=== PATIENT | female | born 1995 | race Two or more races ===

== ENCOUNTER 2020-05-22 11:05 | Observation (INO) | payer MEDICAID | END 2020-05-22 12:25 | disposition home or self-care (01) | DRG 566 | LOC: LDRP 11:05 | PROVIDERS: ADMIT Specialist; ATTEND Specialist | DX: O36.5930 Maternal care for other known or suspected poor fetal growth, third trimester, not applicable or unspecified (principal); Z3A.34 34 weeks gestation of pregnancy | CPT/HCPCS: 76818; G0378; 59025; 81002 ==

== ENCOUNTER 2020-05-25 15:11 | Observation (INO) | payer MEDICAID ==
[2020-05-25] MEDS ORDERED: PREN-96 PO (15:49)
[2020-05-25] MEDS ORDERED: TERBUTALINE SULFATE 1 MG/ML 1ML VIAL SC ONE (19:56)
== END 2020-05-25 16:05 | disposition home or self-care (01) | DRG 566 ==
LOC: LDRP 15:11
PROVIDERS: ADMIT Specialist; ATTEND Specialist
DX: O36.5930 Maternal care for other known or suspected poor fetal growth, third trimester, not applicable or unspecified (principal); Z3A.34 34 weeks gestation of pregnancy
CPT/HCPCS: 59025; 76818; 81002; G0378; J3105

== ENCOUNTER 2020-05-25 18:21 | Observation (INO) | payer MEDICAID ==
[~2020-05-25] VITALS: Ht 160 cm; Wt 62.6 kg
[~2020-05-25 18:21] MED LIST: PREN-96 PO
[2020-05-25] MEDS ORDERED: NIFEdipine 10 MG CAP ONE (19:10)
[2020-05-25] MEDS ORDERED: NIFEdipine 10 MG CAP PO ONE (19:15)
[2020-05-25] MEDS ORDERED: TERBUTALINE SULFATE 1 MG/ML 1ML VIAL SC SCH (20:00)
== END 2020-05-25 20:38 | disposition home or self-care (01) | DRG 566 ==
LOC: LDRP 18:21
PROVIDERS: ADMIT Specialist; ATTEND Specialist
DX: O36.5930 Maternal care for other known or suspected poor fetal growth, third trimester, not applicable or unspecified (principal); O62.9 Abnormality of forces of labor, unspecified; O26.893 Other specified pregnancy related conditions, third trimester; R10.9 Unspecified abdominal pain; Z3A.34 34 weeks gestation of pregnancy
CPT/HCPCS: 59025; 81002; 96372; G0378

== ENCOUNTER 2020-05-29 16:09 | Observation (INO) | payer MEDICAID ==
[2020-05-29] MEDS ORDERED: NIF10C GT (18:18)
== END 2020-05-29 18:56 | disposition home or self-care (01) ==
LOC: LDRP 16:09
PROVIDERS: ADMIT Specialist; ATTEND Specialist
DX: O36.5930 Maternal care for other known or suspected poor fetal growth, third trimester, not applicable or unspecified (principal); Z3A.35 35 weeks gestation of pregnancy
CPT/HCPCS: 59025; 76818; G0378; 81002

== ENCOUNTER 2020-06-01 16:08 | Observation (INO) | payer MEDICAID ==
[~2020-06-01 16:08] MED LIST changes: +NIF10C GT
== END 2020-06-01 17:15 | disposition home or self-care (01) | DRG 566 ==
LOC: LDRP 16:08
PROVIDERS: ADMIT Specialist; ATTEND Specialist
DX: O36.5930 Maternal care for other known or suspected poor fetal growth, third trimester, not applicable or unspecified (principal); O62.9 Abnormality of forces of labor, unspecified; Z3A.35 35 weeks gestation of pregnancy
CPT/HCPCS: 59025; 76818; 81002; G0378

== ENCOUNTER 2020-06-05 14:00 | Observation (INO) | payer MEDICAID | END 2020-06-05 15:03 | disposition home or self-care (01) | DRG 566 | LOC: LDRP 14:00 | PROVIDERS: ADMIT Specialist; ATTEND Specialist | DX: O36.5930 Maternal care for other known or suspected poor fetal growth, third trimester, not applicable or unspecified (principal); Z3A.36 36 weeks gestation of pregnancy | CPT/HCPCS: 59025; 76818; 81002; G0378 ==

== ENCOUNTER 2020-06-08 15:19 | Observation (INO) | payer MEDICAID | END 2020-06-08 16:33 | disposition home or self-care (01) | DRG 566 | LOC: LDRP 15:19 | PROVIDERS: ADMIT Specialist; ATTEND Specialist | DX: O36.5930 Maternal care for other known or suspected poor fetal growth, third trimester, not applicable or unspecified (principal); Z3A.36 36 weeks gestation of pregnancy | CPT/HCPCS: 59025; 76818; 81002; G0378 ==

== ENCOUNTER 2020-06-12 15:00 | Observation (INO) | payer MEDICAID | END 2020-06-12 16:10 | disposition home or self-care (01) | DRG 566 | LOC: LDRP 15:00 | PROVIDERS: ADMIT Specialist; ATTEND Specialist | DX: O36.5930 Maternal care for other known or suspected poor fetal growth, third trimester, not applicable or unspecified (principal); O62.9 Abnormality of forces of labor, unspecified; Z3A.37 37 weeks gestation of pregnancy | CPT/HCPCS: 59025; 76818; 81002; G0378 ==

== ENCOUNTER 2020-06-16 07:00 | Inpatient (IN) | payer MEDICAID ==
[~2020-06-16] VITALS: Ht 160 cm; Wt 63.5 kg
[2020-06-16] MEDS ORDERED: WITCH HAZEL-GLYCERIN PAD TOP PRN (07:30)
[2020-06-16] MEDS: LACTATED RINGER'S 1,000 ML IV SCH ×2 (07:30→14:08)
[2020-06-16] MEDS ORDERED: NALBUPHINE HCL 10 MG/1ml INJECTION IV PRN (07:30)
[2020-06-16] MEDS ORDERED: LIDOCAINE 2%HCL (LOCAL ANESTH.) INJ 20ML MDV ID ONE (07:30)
[2020-06-16] MEDS ORDERED: CARBOPROST TROMETHAMINE 250 MCG/1ML VIAL IM PRN (07:30)
[2020-06-16] MEDS ORDERED: METHYLERGONOVINE MALEATE 0.2 MG/ML AMP IM PRN (07:30)
[2020-06-16] MEDS ORDERED: DERMOPLAST 60ML BOTTLE TOP PRN (07:30)
[2020-06-16] MEDS ORDERED: PHISODERM TOP SOLN 240ML BTL TOP PRN (07:30)
[2020-06-16 07:59] LABS: Basophils # (auto) 0 10 ^3/uL (0-0.2); Basophils % (auto) 0.3 % (0.0-2.0); Eosinophils # (auto) 0.2 10 ^3/uL (0-0.8); Eosinophils % (auto) 1.9 % (0.0-7.0); Hematocrit 37.6 % (36.0-46.0); Hemoglobin 12.3 g/dL (12.2-16.2); Lymphocytes # (auto) 1.5 10 ^3/uL (0.4-5.4); Lymphocytes % (auto) 17.6 % (10.0-50.0); Mean Corpuscular Hemoglobin 27.6 pg (28.0-32.0); Mean Corpuscular Hgb Conc. 32.6 g/dL (32.0-36.0); Mean Corpuscular Volume 84.5 fL (80.0-100.0); Monocytes # (auto) 0.8 10 ^3/uL (0-1.3); Monocytes % (auto) 9.5 % (0.0-12.0); Neutrophils # (auto) 5.9 10 ^3/uL (1.6-8.6); Neutrophils % (auto) 70.7 % (37.0-80.0); Platelet Count (auto) 148 10^3/uL (140-450); Red Blood Cells 4.45 10^6/uL (4.0-5.20); Red Cell Distribution Width 14.5 % (11.8-14.3); White Blood Cell 8.4 10^3/uL (4.4-10.8)
[2020-06-16 08:07] LABS: Urine Bacteria FEW /hpf (None Seen); Urine Blood Negative /uL (Negative); Urine Mucus FEW (None Seen); Urine Specific Gravity 1.023 (1.001-1.035); Urine WBC 7 /hpf (0 - 5)
[2020-06-16 08:17] LABS: Albumin 3.3 g/dL (3.4-5.0); Calcium 9.2 mg/dL (8.5-10.1); INR 0.84 (0.9-1.15); Partial Thromboplastin Time 23.6 sec (23.0-31.2); Potassium 4.2 mmol/L (3.5-5.1)
[2020-06-16 08:23] LABS: BUN/Creatinine Ratio 9.9; Bilirubin, Total 0.2 mg/dL (0.2-1.0); Total Protein 7.2 g/dL (6.4-8.2)
[2020-06-16 08:25] LABS: Alcohol, Urine < 3.0 mg/dL (0-10); Amphetamine Screen, Urine NEGATIVE (NEGATIVE); Barbiturate Scree,Urine NEGATIVE (NEGATIVE); Benzodiazephine Screen, Urine NEGATIVE (NEGATIVE); Cannabinoid Screen, Urine NEGATIVE (NEGATIVE); Cocaine Screen, Urine NEGATIVE (NEGATIVE); Opiate Scree,Urine NEGATIVE (NEGATIVE); Phencyclidine Screen, Urine NEGATIVE (NEGATIVE)
[2020-06-16] MEDS: miSOPROStol 50 MCG per PRE-CUT 1/2 TAB PO PRN ×2 (08:43→18:42)
[2020-06-16] MEDS ORDERED: DIPHENOXYLATE W/ATROPINE 2.5 MG TAB PO PRN (10:15)
[2020-06-16] MEDS ORDERED: ONDANSETRON HCL 4 MG/2 ML VIAL IV PRN (10:15)
[2020-06-16] MEDS ORDERED: PROMETHAZINE HCL 25 MG/ML 1ML IV PRN (13:00)
[2020-06-16] MEDS ORDERED: BUTORPHANOL TARTRATE 2 MG/1 ML VIAL IV ONE (14:00)
[2020-06-17] MEDS: LACTATED RINGER'S 1,000 ML IV SCH ×3 (00:35→07:41)
[2020-06-17] MEDS: miSOPROStol 50 MCG per PRE-CUT 1/2 TAB PO PRN (00:58)
[2020-06-17] MEDS ORDERED: LACT. RINGERS/OXYTOCIN 20UNITS 1,000 ML IV SCH ×2 (02:18→11:19)
[2020-06-17] MEDS ORDERED: ROPIVACAINE HCL 100 ML EPI SCH (04:00)
[2020-06-17] MEDS ORDERED: LIDOCAINE HCL 2 %PF INJ 10ML AMP IJ ONE (04:00)
[2020-06-17] MEDS ORDERED: ePHEDrine SULFATE 50 MG/ML AMP IV PRN (04:00)
[2020-06-17] MEDS ORDERED: NALOXONE HCL 0.4 MG/ML VIAL IV PRN (04:00)
[2020-06-17] MEDS ORDERED: fentaNYL CITRATE 100 MCG/2 ML VL IV ONE ×3 (04:00→05:15)
[2020-06-17] MEDS ORDERED: fentaNYL 200mCg/100ml W ROPIVA 100 ML EPI SCH ×2 (04:45→05:15)
[2020-06-17] MEDS ORDERED: SODIUM CHLORIDE 0.9% 500 ML IV PRN (05:04)
[2020-06-17] MEDS ORDERED: ePHEDrine SULFATE 50 MG/ML AMP IV ONE (05:15)
[2020-06-17] MEDS ORDERED: NALOXONE HCL 0.4 MG/ML VIAL IV ONE (05:15)
[2020-06-17] MEDS ORDERED: LIDOCAINE 2%HCL (LOCAL ANESTH.) INJ 20ML MDV IJ ONE (05:15)
[2020-06-17] MEDS ORDERED: LIDOCAINE 2%HCL (LOCAL ANESTH.) INJ 10ml MDV IJ ONE (07:00)
[2020-06-17 08:06] LABS: RPR Non Reactive (Non Reactive)
[2020-06-17] MEDS ORDERED: LACT. RINGERS/OXYTOCIN 20UNITS 500 ML IV ONE (10:19)
[2020-06-17] MEDS: IBUPROFEN 600 MG TAB PO PRN ×3 (11:08→18:43)
[2020-06-17 12:06] VITALS: BP 121/62
--- NOTE | 2020-06-17 12:06 | NUR ---
Ambulation: Fundal and lochia assessed prior to ambulation. Pt assisted to dangle on side of bed prior to ambulation. Pt denies dizziness. Patient OOB with standby assistance by RN. Patient ambulated to bathroom with steady gait. Patient able to void 300ml without difficulty. [facility] teaching provided with returned demonstration by patient. Clean gown provided and bed linen changed. Patient ambulated back to bed with steady gait and no distress noted.
--- NOTE | 2020-06-17 14:09 | NUR ---
Dr. Verma called by this RN and informed of QBL during recovery period of 175ml. Dr. Verma informed of current fundal check of 2 below U with a small amount of bleeding with no clots, there was a small trickle of blood noted upon fundal rub. Dr. Verma informed that bag of Pitocin almost finished and this RN inquires whether he would like another bag of Pitocin. Orders received to given Cytotec 200mcg Sl and 600mg AL. May place Brown catheter if needed. Dr. Verma informed that pt has been able to void x 1 without difficulty since delivery. Continue to monitor. Orders to be followed.
[2020-06-17] MEDS ORDERED: miSOPROStol 50 MCG per PRE-CUT 1/2 TAB PR ONE (14:15)
[2020-06-17] MEDS ORDERED: miSOPROStol 50 MCG per PRE-CUT 1/2 TAB SL ONE (14:15)
[2020-06-17] MEDS ORDERED: miSOPROStol 100 mcg TAB PR ONE (14:30)
[2020-06-17 15:27] VITALS: BP 131/73
--- NOTE | 2020-06-17 18:15 | NUR ---
Report given to Brent YAO RN on stable pt. Relinquished care. Addendum: 06/17/20 at 1821 by Surekha Lai RN Amended: Links added.
[2020-06-17 19:00] VITALS: BP 120/63
[2020-06-17 23:00] VITALS: BP 108/64
[2020-06-18 03:00] VITALS: BP 111/65
[2020-06-18] MEDS: IBUPROFEN 600 MG TAB PO PRN ×7 (03:12→22:45)
[2020-06-18 07:25] VITALS: BP 122/77
--- NOTE | 2020-06-18 08:00 | NUR ---
IV removal IV DC'd with clean sterile technique, catheter fully intact. Pressure dressing applied to site. Patient tolerated well. NOTE:
[2020-06-18 11:15] VITALS: BP 117/67
[2020-06-18 15:00] VITALS: BP 122/77
[2020-06-18 19:00] VITALS: BP 119/66
[2020-06-18 22:42] VITALS: BP 116/70
[2020-06-19] MEDS: IBUPROFEN 600 MG TAB PO PRN ×2 (02:45→06:56)
[2020-06-19 03:00] VITALS: BP 112/68
[2020-06-19] MEDS ORDERED: DOCUSATE CALCIUM 240 MG CAP PO SCH (04:00)
[2020-06-19 07:20] VITALS: BP 122/83
[2020-06-19 11:00] VITALS: BP 107/62
--- NOTE | 2020-06-19 11:55 | NUR ---
Discharge: Discharge instructions given as ordered. Pt encouraged to follow up with [facility] as instructed. All questions and concerns addressed. Patient verbalized understanding. Medication reconciliation completed and copy given to patient. All required/requested vaccines given and copies of vaccinations given to patient. Patient encouraged to prepare to depart unit.
--- NOTE | 2020-06-19 12:05 | NUR ---
Discharge: Patient taken to vehicle ambulating with all personal belongings, accompanied by staff and family member. No distress noted at time of departure, no adverse changes in status since initial assessment.
== END 2020-06-19 12:00 | disposition home or self-care (01) | DRG 560 ==
LOC: LDRP 07:00
PROVIDERS: ADMIT Specialist; ATTEND Specialist
PROC: 10D07Z6 Extraction of Products of Conception, Vacuum, Via Natural or Artificial Opening (ICD-10-PCS; principal; 2020-06-17)
PROC: 0UQGXZZ Repair Vagina, External Approach (ICD-10-PCS; 2020-06-17)
PROC: 3E0R3BZ Introduction of Anesthetic Agent into Spinal Canal, Percutaneous Approach (ICD-10-PCS; 2020-06-17)
PROC: 00HU33Z Insertion of Infusion Device into Spinal Canal, Percutaneous Approach (ICD-10-PCS; 2020-06-17)
DX: O36.5930 Maternal care for other known or suspected poor fetal growth, third trimester, not applicable or unspecified (principal); O99.52 Diseases of the respiratory system complicating childbirth; J45.909 Unspecified asthma, uncomplicated; Z3A.38 38 weeks gestation of pregnancy; Z37.0 Single live birth; Z20.828 Contact with and (suspected) exposure to other viral communicable diseases; O71.4 Obstetric high vaginal laceration alone
CPT/HCPCS: 36415; 59025; 59409; 62282; 76818; 80053; 80307; 81001; 81002; 84112; 84550; 85025; 85610; 85730; 86592; 86850; 86900; 86901; 87426; 96360; 96361; 96374; 96375; G0378; J2001; J2405; J2590